=== PATIENT | female | born 1945 | race Caucasian/White ===

== ENCOUNTER 2017-12-04 12:06 | Emergency (ER) | payer OTHER ==
[2017-12-04 12:14] VITALS: BP 138/64; PULSE 85; TEMP 97.7; BMI 20.4
[2017-12-04] MEDS ORDERED: LIDOCAINE 1%/EPI 1:100000 (20 ML MULTI DOSE VIAL) ONE (12:53)
[2017-12-04] MEDS ORDERED: LIDOCAINE 1%/EPI 1:100000 (50 ML MULTI DOSE VIAL) INF ONE (13:07)
--- NOTE | 2017-12-04 13:11 | PDOC ---
History of Present Illness - General Chief Complaint: Abscess Boil Stated Complaint: RASH Time Seen by Provider: 12/04/17 12:25 History Source: Patient Exam Limitations: No Limitations - History of Present Illness Initial Comments: 12/04/17 13:20 72 yr female here to meet for abscess to her nose being treated by her PMD with antibiotics. sent pt in to have it drained 12/04/17 17:22 Past History - Past Medical History Allergies/Adverse Reactions: Allergies Allergy/AdvReac Type Severity Reaction Status Date / Time No Known Allergies Allergy Verified 12/04/17 12:14 Home Medications: Ambulatory Orders Apixaban [Eliquis -] 5 mg PO DAILY 12/04/17 Levothyroxine Sodium [Levo-T] 100 mcg PO DAILY 12/04/17 Mupirocin Ointment [Bactroban 2% Ointment -] 1 applic TP TID #1 tube 12/04/17 Pravastatin Sodium 20 mg PO DAILY 12/04/17 Pregabalin [Lyrica] 100 mg PO DAILY 12/04/17 COPD: No Thyroid Disease: Yes (hypo) Other medical history: arthritis, osteoporosis - Surgical History Appendectomy: Yes - Suicide/Smoking/Psychosocial Hx Smoking History: Never smoked Review of Systems - Review of Systems Able to Perform ROS?: Yes Is the patient limited Kosovan proficient: No Integumentary: Yes: Symptoms Reported *Physical Exam - Vital Signs Last Vital Signs Temp Pulse Resp BP Pulse Ox 97.7 F 85 18 138/64 99 12/04/17 12:10 12/04/17 12:10 12/04/17 12:10 12/04/17 12:10 12/04/17 12:10 - Physical Exam General Appearance: Yes: Nourished, Appropriately Dressed HEENT: positive: EOMI, CHELSI Integumentary: positive: Other (nasal tip with redness, dried blood from the left nare, swelling ) Neurologic: positive: Motor Strength 5/5 Medical Decision Making - Medical Decision Making 12/04/17 17:24 cc: abscess with cellulitus to the nose drained by plastic surgeon pt has good follow up with and her PCP this week all questions asked and answererd at discharge. *DC/Admit/Observation/Transfer Diagnosis at time of Disposition: Nasal septal abscess - Discharge Dispostion Disposition: HOME Condition at time of disposition: Good - Prescriptions Prescriptions: Mupirocin Ointment [Bactroban 2% Ointment -] 1 applic TP TID #1 tube - Referrals Referrals: Jordan Martinez MD [Staff Physician] - - Patient Instructions Additional Instructions: follow with on Tuesday and your primary care doctor as planned use the ointment 2-3 times a day to the inside of the nare - Post Discharge Activity
== END 2017-12-04 13:21 | disposition home or self-care (01) ==
LOC: JERFT 12:06
PROC: 0J910ZZ Drainage of Face Subcutaneous Tissue and Fascia, Open Approach (ICD-10-PCS; principal; 2017-12-04)
DX: J34.0 Abscess, furuncle and carbuncle of nose (principal)
CPT/HCPCS: 87070; 87186; 87205; 99283-25